=== PATIENT | male | born 1970 | race Two or more races ===

== ENCOUNTER 2024-12-18 15:55 | Inpatient (IN) | payer MEDICAID ==
[~2024-12-18] VITALS: Ht 167.6 cm; Wt 54.2 kg
[2024-12-18] MEDS: ONDANSETRON HCL 4 MG/2 ML VIAL IV ONE (16:15)
[2024-12-18] MEDS: MORPHINE SULFATE 4 MG/ML SYR/VIAL IV ONE (16:15)
--- NOTE | 2024-12-18 16:17 | ED.PDOC ---
History of Present Illness HPI Comments 54-year-old male brought in by EMS presents with a chief complaint of flank pain and nausea. Patient states that x 10 days ago he stopped taking his Keflex abruptly. Patient takes this medication due to a chronic Baxter catheter. Patient mentions that he took it today and took a nap, when he woke up he reports that he got a sharp 10/10 pain to his right flank. Time Seen by MD: 16:02 Reviewed Notes: Medications, Allergies Allergies: Coded Allergies: Sulfamethoxazole w/Trimethoprim (Verified Allergy, Unknown, 12/18/24) Information Source: Patient, Emergency Med Personnel Mode of Arrival: EMS Severity: Moderate Timing: Hours Duration: Since onset Prehospital treatment: Honing Machine Operator Semiautomatic Constitutional: denies: chills, diaphoresis, fatigue, fever, malaise, sweats, weakness, others EENTM: denies: blurred vision, double vision, ear bleeding, ear discharge, ear drainage, ear pain, ear ringing, eye pain, eye redness, hearing loss, mouth pain, mouth swelling, nasal discharge, nose bleeding, nose congestion, nose pain, photophobia, tearing, throat pain, throat swelling, voice changes, others Respiratory: denies: cough, hemoptysis, orthopnea, SOB at rest, shortness of breath, SOB with excertion, stridor, wheezing, others Cardiovascular: denies: chest pain, dizzy spells, diaphoresis, Dyspnea on exertion, edema, irregular heart beat, left arm pain, lightheadedness, palpitations, PND, syncope, others Gastrointestinal: reports: nausea; denies: abdomen distended, abdominal pain, blood streaked bowels, constipated, diarrhea, dysphagia, difficulty swallowing, hematemesis, melena, poor appetite, poor fluid intake, rectal bleeding, rectal pain, vomiting, others Genitourinary: reports: flank pain; denies: burning, dysuria, frequency, hematuria, incontinence, penile discharge, penile sore, pain, testicle pain, testicle swelling, urgency, others Neurological: denies: dizziness, fainting, headache, left sided numbness, left sided weakness, numbness, paresthesia, pre-existing deficit, right sided numbness, right sided weakness, seizure, speech problems, tingling, tremors, w eakness, others Musculoskeletal: denies: back pain, gout, joint pain, joint swelling, muscle pain, muscle stiffness, neck pain, others Integumetry: denies: bruises, change in color, change in hair/nails, dryness, laceration, lesions, lumps, rash, wounds, others Allergic/Immunocompromised: denies: Difficulty Healing, Frequent Infections, Hives, Itching, others Hematologic/Lymphatic: denies: anemia, blood clots, easy bleeding, easy bruising, swollen glands, others Endocrine: denies: excessive hunger, excessive sweating, excessive thirst, excessive urination, flushing, intolerance to cold, intolerance to heat, unexplained weight gain, unexplained weight loss, others Psychiatric: denies: anxiety, bipolar disorder, depression, hopeless, panic disorder, schizophrenia, sleepless, suicidal, others All Other Systems: Reviewed and Negative Physical Exam General Appearance: No Apparent Distress, Normal HEENT: Normal ENT Inspection, Pharynx Normal, TMs Normal Neck: Full Range of Motion, Non-Tender, Normal, Normal Inspection Respiratory: Chest Non-Tender, Lungs Clear, No Accessory Muscle Use, No Respiratory Distress, Normal Breath Sounds Cardiovascular: No Edema, No JVD, No Murmur, No Gallop, Normal Peripheral Pulses, Regular Rate/Rhythm Breast Exam: Deferred Gastrointestinal: No Organomegaly, Non Tender, No Pulsatile Mass, Normal Bowel Sounds, Soft Genitalia: Deferred Pelvic: Deferred Rectal: Deferred Extremities: No calf tenderness, Normal capillary refill, Normal inspection, Normal range of motion, Non-tender, No pedal edema Musculoskeletal : Apperance: Normal Neurologic: Alert, brake holder II-XII nml as Tested, No Motor Deficits, Normal Affect, Normal Mood, No Sensory Deficits Cerebellar Function: Normal Reflexes: Normal Skin: Dry, Normal Color, Warm Lymphatic: No Adenopathy Was a procedure done? Was a procedure done?: No Differential Dx Considerations may include: Generalized weakness, electrolyte imbalance, dehydration, UTI X-Ray, Labs, Meds, VS Vital Signs Date Time Temp Pulse Resp B/P (MAP) Pulse Ox O2 Delivery O2 Flow Rate FiO2 12/18/24 16:29 89 18 97 Room Air* 0 21 12/18/24 16:29 102.7 89 18 155/91 (112) 97 102.7 12/18/24 16:29 102.7 89 18 155/91 (112) 97 102.7 12/18/24 16:28 102.7 Lab Test 12/18/24 16:30 Range/Units White Blood Count 12.2 H 4.4-10.8 10^3/uL Red Blood Count 4.28 L 4.5-5.90 10^6/uL Hemoglobin 12.4 L 13.5-17.5 g/dL Hematocrit 37.4 L 41.0-53.0 % Mean Corpuscular Volume 87.3 80.0-100.0 fL Mean Corpuscular Hemoglobin 28.9 28.0-32.0 pg Mean Corpuscular Hemoglobin Concent 33.1 32.0-36.0 g/dL Red Cell Distribution Width 14.3 11.8-14.3 % Platelet Count 128 L 140-450 10^3/uL Mean Platelet Volume 9.3 6.9-10.8 fL Neutrophils (%) (Auto) 86.7 H 37.0-80.0 % Lymphocytes (%) (Auto) 7.4 L 10.0-50.0 % Monocytes (%) (Auto) 5.3 0.0-12.0 % Eosinophils (%) (Auto) 0.3 0.0-7.0 % Basophils (%) (Auto) 0.3 0.0-2.0 % Neutrophils # (Auto) 10.6 H 1.6-8.6 10 ^3/uL Lymphocytes # (Auto) 0.9 0.4-5.4 10 ^3/uL Monocytes # (Auto) 0.7 0-1.3 10 ^3/uL Eosinophils # (Auto) 0 0-0.8 10 ^3/uL Basophils # (Auto) 0 0-0.2 10 ^3/uL Nucleated Red Blood Cells 0.0 % Urine Color Light-yellow Yellow Urine Clarity Clear Clear Urine pH 7.0 5.0-9.0 Urine Specific Felicity 1.009 1.001-1.035 Urine Protein 1+ H Negative Urine Ketones Negative Negative Urine Blood Negative Negative /uL Urine Nitrite Negative Negative Urine Bilirubin Negative Negative Urine Urobilinogen Normal Negative mg/dL Urine Leukocyte Esterase 1+ Negative /uL Urine RBC 3 0 - 3 /hpf Urine Microscopic WBC 12 H 0-3 /HPF Urine Squamous Epithelial Cells None seen <5 /hpf Urine Bacteria Few H None Seen /hpf Urine Yeast (Budding) Occasional None Seen /hpf Urine Sperm Present None Seen /hpf Urine Glucose Normal Normal mg/dL Sodium Level 141 136-145 mmol/L Potassium Level 4.9 3.5-5.1 mmol/L Chloride Level 111 H 98-107 mmol/L Carbon Dioxide Level 21 20-31 mmol/L Anion Gap 9 5-15 Blood Urea Nitrogen 41 H 9-23 mg/dL Creatinine 1.83 H 0.700-1.30 mg/dL Glomerular Filtration Rate Calc 43 >90 mL/min BUN/Creatinine Ratio 22.4 H 10.0-20.0 Serum Glucose 108 H 74-106 mg/dL Lactic Acid Level 0.6 0.4-2.0 mmol/L Calcium Level 8.7 8.7-10.4 mg/dL Current Medications Medications (Trade) Dose Ordered Sig/Jarvis Route Start Time Stop Time Status Last Admin Sodium Chloride 500 ml @ 500 mls/hr Q1H ONCE IV 12/18/24 16:15 12/18/24 17:14 DC 12/18/24 16:30 Acetaminophen (Tylenol Tablet) 650 mg ONCE ONCE PO 12/18/24 16:30 12/18/24 16:31 DC 12/18/24 16:28 CAT scan of the abdomen and pelvis shows: IMPRESSION: 1. Prominent left renal pelvis. 1.7 cm isodense lesion of the left kidney, likely cysts. This can be further evaluated with CT or MRI of the abdomen using renal mass protocol. 2. The prostate gland is enlarged. Correlation with PSA values may be helpful if not previously performed. 3. Small esophageal hiatal hernia. 4. Hepatomegaly with fatty infiltration. 5. Fecal retention in the colon consistent with constipation. The patient's CBC shows an elevated white blood cell count of 12.2 but otherwise within normal limits The chemistry panel shows a BUN of 41 a creatinine of 1.83 The urine test is positive for UTI At this time, the patient's lactic acid level is within normal limits We did do blood cultures The patient was given 650 mg p.o. for the fever. At this time the patient will be admitted to the hospitalist Images Reviewed?: Images reviewed and evaluated by me Time of 1ST Reevaluation: 16:32 Reevaluation 1ST: Unchanged Patient Education/Counseling: Diagnosis, Treatment, Prognosis Family Education/Counseling: No Family Present Sepsis Sepsis Reasesment Focused Exam Orders: Laboratory Tests 12/18/24 16:30: Lactic Acid Level 0.6 Departure 1 Departure Time of Disposition: 18:14 Impression: Primary Impression: Flank pain Additional Impressions: UTI (urinary tract infection) Qualified Codes: N30.00 - Acute cystitis without hematuria Leukocytosis Qualified Codes: D72.829 - Elevated white blood cell count, unspecified Disposition: 09 ADMITTED INPATIENT Admit to: Med Surg Condition: Fair Critical Care Note Critical Care Time?: No Stability Stability form required: Yes Unstable for transfer: ED Physician Assesment (Clinical assesment) Heart Score Heart Score: Heart Score Response (Comments) Value History N/A 0 EKG N/A 0 Age N/A 0 Risk Factors N/A 0 Troponin N/A 0 Total 0 I personally scribed for GENTRY KEATING MD ([email or web address]) on 12/18/24 at 16:17. Electronically submitted by Jose Chamberlain ([email or web address]). GENTRY KEATING MD December 18, 2024 16:17
[2024-12-18] MEDS: ACETAMINOPHEN 325 MG TAB PO ONE (16:28)
[2024-12-18 16:29] VITALS: PULSE 89; RESP 18; O2SAT 97
[2024-12-18] MEDS: SODIUM CHLORIDE 0.9% 500 ML IV ONE (16:30)
[2024-12-18 16:37] LABS: Basophils # (auto) 0 10 ^3/uL (0-0.2); Basophils % (auto) 0.3 % (0.0-2.0); Eosinophils # (auto) 0 10 ^3/uL (0-0.8); Eosinophils % (auto) 0.3 % (0.0-7.0); Hematocrit 37.4 % (41.0-53.0); Hemoglobin 12.4 g/dL (13.5-17.5); Lymphocytes # (auto) 0.9 10 ^3/uL (0.4-5.4); Lymphocytes % (auto) 7.4 % (10.0-50.0); Mean Corpuscular Hemoglobin 28.9 pg (28.0-32.0); Mean Corpuscular Hgb Conc. 33.1 g/dL (32.0-36.0); Mean Corpuscular Volume 87.3 fL (80.0-100.0); Monocytes # (auto) 0.7 10 ^3/uL (0-1.3); Monocytes % (auto) 5.3 % (0.0-12.0); Neutrophils # (auto) 10.6 10 ^3/uL (1.6-8.6); Neutrophils % (auto) 86.7 % (37.0-80.0); Platelet Count (auto) 128 10^3/uL (140-450); Red Blood Cells 4.28 10^6/uL (4.5-5.90); Red Cell Distribution Width 14.3 % (11.8-14.3); White Blood Cell 12.2 10^3/uL (4.4-10.8)
[2024-12-18 16:44] LABS: Potassium 4.9 mmol/L (3.5-5.1); Sodium 141 mmol/L (136-145)
[2024-12-18 16:45] LABS: Anion Gap 9 (5-15); Carbon Dioxide 21 mmol/L (20-31)
[2024-12-18 16:47] LABS: Calcium 8.7 mg/dL (8.7-10.4); Chloride 111 mmol/L (98-107)
[2024-12-18 16:50] LABS: BUN/Creatinine Ratio 22.4 (10.0-20.0); Blood Urea Nitrogen 41 mg/dL (9-23); Glucose 108 mg/dL (74-106)
--- NOTE | 2024-12-18 17:10 | DVH ---
EXAM: CT Abdomen and Pelvis Without Intravenous Contrast CLINICAL INDICATION: flank pain (right) TECHNIQUE: Axial computed tomography images of the abdomen and pelvis without intravenous contrast. This CT exam was performed using one or more of the following dose reduction techniques: automated exposure control, adjustment of the mA and/or kV according to patient size, and/or use of iterative r econstruction technique. CONTRAST: RADIATION DOSE: CTDIvol = 5.09 mGy, DLP = 255.64 mGy-cm COMPARISON: None FINDINGS: LUNG BASES: Unremarkable. No mass. No consolidation. MEDIASTINUM: Small esophageal hiatal hernia. ABDOMEN: LIVER: Hepatomegaly with fatty infiltration. GALLBLADDER AND BILE DUCTS: Unremarkable. No calcified stones. No ductal dilation. PANCREAS: Unremarkable. No ductal dilation. SPLEEN: Unremarkable. No splenomegaly. ADRENALS: Unremarkable. No mass. KIDNEYS AND URETERS: Prominent left renal pelvis. 1.7 cm isodense lesion of the left kidney, likely cysts. This can be further evaluated with CT or MRI of the abdomen using renal mass protocol. No ob structing stones. STOMACH AND BOWEL: Fecal retention in the colon consistent with constipation. No obstruction. No mucosal thickening. PELVIS: APPENDIX: No findings to suggest acute appendicitis. BLADDER: Unremarkable. No stones. REPRODUCTIVE: The prostate gland is enlarged measuring 5.2 cm in maximum dimension. ABDOMEN and PELVIS: INTRAPERITONEAL SPACE: Unremarkable. No free air. No significant fluid collection. BONES/JOINTS: No acute fracture. No dislocation. SOFT TISSUES: Unremarkable. VASCULATURE: Unremarkable. No abdominal aortic aneurysm. LYMPH NODES: Unremarkable. No enlarged lymph nodes. OTHER FINDINGS: . . . IMPRESSION: 1. Prominent left renal pelvis. 1.7 cm isodense lesion of the left kidney, likely cysts. This can be further evaluated with CT or MRI of the abdomen using renal mass protocol. 2. The prostate gland is enlarged. Correlation with PSA values may be helpful if not previously per formed. 3. Small esophageal hiatal hernia. 4. Hepatomegaly with fatty infiltration. 5. Fecal retention in the colon consistent with constipation.
[2024-12-18 18:08] LABS: Urine Bacteria FEW /hpf (None Seen); Urine Blood Negative /uL (Negative); Urine Budding Yeast OCCASIONAL /hpf (None Seen); Urine Clarity Clear (Clear); Urine Color Light-Yellow (Yellow); Urine Protein, UAD 1+ (Negative); Urine Specific Gravity 1.009 (1.001-1.035); Urine Sperm PRESENT /hpf (None Seen); Urine Squamous Epithelial Cell None Seen /hpf (<5); Urine Urobilinogen Normal (Negative); Urine WBC 12 /HPF (0-3)
[2024-12-18] MEDS: cefTRIAXone 1GM/50ML D5W 50 ML IV ONE (18:39)
[2024-12-18 19:30] VITALS: PULSE 75; RESP 12; O2SAT 95
[2024-12-18] MEDS ORDERED: MORPHINE SULFATE 4 MG/ML SYR/VIAL IV PRN (21:15)
[2024-12-18] MEDS: SODIUM CHLORIDE 0.9% 1,000 ML IV SCH (21:15)
[2024-12-18] MEDS ORDERED: ONDANSETRON HCL 4 MG/2 ML VIAL IV PRN (21:15)
[2024-12-18] MEDS ORDERED: cefTRIAXone 1GM/50ML D5W 50 ML IV ONE (21:15)
[2024-12-18] MEDS ORDERED: ACETAMINOPHEN 325 MG TAB PO PRN (21:15)
--- NOTE | 2024-12-18 21:35 | DVH ---
CHEST RADIOGRAPH Indication: pna Technique: Single frontal view of the chest was obtained Comparison: None FINDINGS: Lines and Tubes: None Lungs: No focal consolidation. Pleura: No effusion. No pneumothorax. Cardiomediastinal contours: Unremarkable Bones: No acute osseous abnormality. IMPRESSION: 1. No acute cardiopulmonary disease.
[2024-12-18 21:43] LABS: Albumin 4.2 g/dL (3.2-4.8); Bilirubin, Direct 0.2 mg/dL (<0.3); Bilirubin, Total 0.6 mg/dL (0.2-1.0); Magnesium 1.7 mg/dL (1.6-2.6); Total Protein 6.4 g/dL (5.7-8.2)
[2024-12-18 21:56] LABS: Protein, Urine 112.9 mg/dL (1-14)
[2024-12-18] MEDS: SODIUM CHLOR 0.9% PF (SALINE LOCK) 10ML VIAL/SYR IV SCH (21:57)
[2024-12-18 21:59] LABS: Creatinine, Urine 36.14 mg/dL (30.0-125.0); Creatinine, Urine 36.23 mg/dL (30.0-125.0); Urine Protein/Creatinine Ratio 3.12
[2024-12-18 22:00] LABS: Amphetamine Screen, Urine Neg (NEGATIVE); Barbiturate Scree,Urine Neg (NEGATIVE); Benzodiazephine Screen, Urine Neg (NEGATIVE); Cannabinoid Screen, Urine Neg (NEGATIVE); Cocaine Screen, Urine Neg (NEGATIVE); Opiate Scree,Urine Neg (NEGATIVE); Phencyclidine Screen, Urine Neg (NEGATIVE)
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
[2024-12-18] MEDS: SODIUM CHLORIDE 0.9% 1,000 ML IV ONE (22:15)
--- NOTE | 2024-12-18 22:36 | DVH ---
INDICATION: RULE OUT PYELONEPHRITIS TECHNIQUE: Multiple real-time sonographic images of the kidneys and bladder were obtained. COMPARISON: None FINDINGS: The right kidney measures 7.5 cm in length, which is normal in size. Decreased cortical thi ckness with increased echogenicity suggesting chronic renal disease. Mild hydronephrosis. 1.4 x 1.2 x 1.1 cm anechoic lesion in the right renal cortex. The left kidney measures 9.4 cm in length, which is normal in size. Decreased cortical increased echo genicity suggesting chronic renal disease No hydronephrosis. 2.9 x 2.4 x 1.7 cm anechoic lesion left renal cortex consistent with a cyst No large intraluminal masses are seen in the bladder. Baxter catheter noted in the bladder in the blad babak is empty. Prostate visualized as a volume of 47 cc IMPRESSION: 1. Right kidney measures 7.5 cm with mild hydronephrosis and findings suggesting chronic renal diseas e. 2. Left kidney measures 9.4 cm with no hydronephrosis 3. Prostate mildly enlarged with a volume of 47 cc Baxter catheter in the bladder in the bladder is empty.
[2024-12-18 23:13] LABS: Folate (Folic Acid) 22.09 ng/mL (>5.38)
[2024-12-19 06:29] LABS: Basophils # (auto) 0 10 ^3/uL (0-0.2); Basophils % (auto) 0.2 % (0.0-2.0); Eosinophils # (auto) 0.1 10 ^3/uL (0-0.8); Hematocrit 36.3 % (41.0-53.0); Hemoglobin 11.9 g/dL (13.5-17.5); Lymphocytes # (auto) 1.5 10 ^3/uL (0.4-5.4); Lymphocytes % (auto) 12.8 % (10.0-50.0); Mean Corpuscular Hemoglobin 28.9 pg (28.0-32.0); Mean Corpuscular Hgb Conc. 32.9 g/dL (32.0-36.0); Mean Corpuscular Volume 87.8 fL (80.0-100.0); Monocytes # (auto) 0.7 10 ^3/uL (0-1.3); Neutrophils # (auto) 9.1 10 ^3/uL (1.6-8.6); Platelet Count (auto) 127 10^3/uL (140-450); Red Blood Cells 4.14 10^6/uL (4.5-5.90); Red Cell Distribution Width 14.5 % (11.8-14.3); White Blood Cell 11.4 10^3/uL (4.4-10.8)
[2024-12-19 06:41] LABS: Alanine Aminotransferase 15 U/L (7-40); Albumin 3.7 g/dL (3.2-4.8); Alkaline Phosphatase 80 U/L (46-116); Anion Gap 11 (5-15); Aspartate Aminotransferase 21 U/L (13-40); Bilirubin, Total 0.6 mg/dL (0.2-1.0); Carbon Dioxide 21 mmol/L (20-31); Glucose 89 mg/dL (74-106); Potassium 4.4 mmol/L (3.5-5.1); Sodium 143 mmol/L (136-145); Total Protein 5.9 g/dL (5.7-8.2)
[2024-12-19 06:49] LABS: Blood Urea Nitrogen 37 mg/dL (9-23); Calcium 7.8 mg/dL (8.7-10.4); Chloride 111 mmol/L (98-107)
[2024-12-19 08:21] VITALS: PULSE 77; RESP 10; O2SAT 96
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
[2024-12-19] MEDS: ENOXAPARIN SOD 40 MG/0.4 ML SYRINGE SC SCH (10:29)
[2024-12-19] MEDS: cefTRIAXone 2GM/50ML D5W 50 ML IV SCH (10:29)
[2024-12-19 15:38] VITALS: BP 121/86; PULSE 55; RESP 15; O2SAT 98
[2024-12-19 20:00] VITALS: PULSE 62
[2024-12-19 21:00] VITALS: BP 124/78; PULSE 56; RESP 17; TEMP 98.1; O2SAT 98
[2024-12-20] VITALS (7 sets, daily range): BP systolic 130–143; BP diastolic 83–93; PULSE 60–66; RESP 14–19; TEMP 97.7–98.8; O2SAT 97–98
[2024-12-20 07:40] LABS: Basophils # (auto) 0 10 ^3/uL (0-0.2); Basophils % (auto) 0.2 % (0.0-2.0); Eosinophils # (auto) 0.2 10 ^3/uL (0-0.8); Eosinophils % (auto) 2.9 % (0.0-7.0); Hematocrit 36.2 % (41.0-53.0); Hemoglobin 12.2 g/dL (13.5-17.5); Lymphocytes # (auto) 0.7 10 ^3/uL (0.4-5.4); Lymphocytes % (auto) 14.3 % (10.0-50.0); Mean Corpuscular Hemoglobin 29.3 pg (28.0-32.0); Mean Corpuscular Hgb Conc. 33.7 g/dL (32.0-36.0); Mean Corpuscular Volume 87.1 fL (80.0-100.0); Monocytes # (auto) 0.4 10 ^3/uL (0-1.3); Monocytes % (auto) 8.1 % (0.0-12.0); Neutrophils # (auto) 3.9 10 ^3/uL (1.6-8.6); Neutrophils % (auto) 74.5 % (37.0-80.0); Nucleated Red Blood Cells % 0.1 %; Platelet Count (auto) 120 10^3/uL (140-450); Red Blood Cells 4.15 10^6/uL (4.5-5.90); Red Cell Distribution Width 14.3 % (11.8-14.3); White Blood Cell 5.2 10^3/uL (4.4-10.8)
[2024-12-20 07:50] LABS: Potassium 4.5 mmol/L (3.5-5.1); Sodium 145 mmol/L (136-145)
[2024-12-20 07:51] LABS: Anion Gap 8 (5-15); Carbon Dioxide 20 mmol/L (20-31)
[2024-12-20 07:56] LABS: BUN/Creatinine Ratio 15.5 (10.0-20.0); Glucose 89 mg/dL (74-106)
[2024-12-20 07:57] LABS: Blood Urea Nitrogen 25 mg/dL (9-23); Calcium 8.3 mg/dL (8.7-10.4); Chloride 117 mmol/L (98-107)
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
[2024-12-20] MEDS: LACTATED RINGER'S 1,000 ML IV SCH (13:38)
[2024-12-21 01:00] VITALS: BP 148/100; PULSE 65; RESP 18; TEMP 97.9; O2SAT 97
[2024-12-21 05:00] VITALS: BP 149/96; PULSE 60; RESP 19; TEMP 98.1; O2SAT 98
[2024-12-21 07:04] LABS: Basophils # (auto) 0 10 ^3/uL (0-0.2); Basophils % (auto) 0.4 % (0.0-2.0); Eosinophils # (auto) 0.2 10 ^3/uL (0-0.8); Eosinophils % (auto) 4.2 % (0.0-7.0); Hematocrit 36.2 % (41.0-53.0); Lymphocytes # (auto) 1.2 10 ^3/uL (0.4-5.4); Lymphocytes % (auto) 22.2 % (10.0-50.0); Mean Corpuscular Hemoglobin 29.6 pg (28.0-32.0); Mean Corpuscular Hgb Conc. 33.2 g/dL (32.0-36.0); Mean Corpuscular Volume 89.2 fL (80.0-100.0); Monocytes # (auto) 0.6 10 ^3/uL (0-1.3); Monocytes % (auto) 10.2 % (0.0-12.0); Neutrophils # (auto) 3.4 10 ^3/uL (1.6-8.6); Platelet Count (auto) 124 10^3/uL (140-450); Red Blood Cells 4.06 10^6/uL (4.5-5.90); Red Cell Distribution Width 14.3 % (11.8-14.3); White Blood Cell 5.4 10^3/uL (4.4-10.8)
[2024-12-21 07:17] LABS: Anion Gap 8 (5-15); Carbon Dioxide 21 mmol/L (20-31); Potassium 4.4 mmol/L (3.5-5.1); Sodium 145 mmol/L (136-145)
[2024-12-21 07:23] LABS: Blood Urea Nitrogen 23 mg/dL (9-23); Glucose 95 mg/dL (74-106)
[2024-12-21 07:25] LABS: Calcium 8.6 mg/dL (8.7-10.4); Chloride 116 mmol/L (98-107)
[2024-12-21 09:00] VITALS: BP 146/92; PULSE 58; RESP 16; TEMP 98.3; O2SAT 97
--- NOTE | 2024-12-21 10:46 | DVHPN2 ---
Progress Note Date Seen: December 21, 2024 Has the PT tested + for MRSA If YES, has PT been informed?: No Medical Necessity Reason Pt with a Central, PICC or Fol: Yes The following are medically ne: Enrique Catheter Subjective Patient reports: Feels better Review of Systems: Deferred Objective vital signs Vital Sign Date Time Temp Pulse Resp B/P (MAP) Pulse Ox O2 Delivery O2 Flow Rate FiO2 12/21/24 09:00 98.3 58 16 146/92 (110) 97 98.3 12/21/24 08:10 Room Air* 0 21 Total Intake and Output 12/20/24 12/20/24 12/21/24 15:00 23:00 07:00 Intake Total 350 ml 630 ml 280 ml Output Total 1050 ml 1550 ml Balance 350 ml -420 ml -1270 ml medications Current Medications Medications Dose Ordered Sig/Jarvis Route Start Time Stop Time Status Last Admin Dose Admin Sodium Chloride 10 ml Q8HR IV 12/18/24 22:00 12/21/24 05:41 10 ML Ondansetron HCl 4 mg Q4HP PRN IV 12/18/24 21:15 Enoxaparin Sodium 40 mg DAILY SC 12/19/24 10:00 12/19/24 10:29 40 MG Acetaminophen 650 mg Q6HP PRN PO 12/18/24 21:15 Morphine Sulfate 2 mg Q4HPRN PRN IV 12/18/24 21:15 Ceftriaxone Sodium/Dextrose 50 ml @ 50 mls/hr DAILY IV 12/19/24 10:00 12/21/24 09:30 50 MLS/HR Lactated Ringer's 1,000 ml @ 75 mls/hr [id number] IV 12/20/24 12:00 12/21/24 02:50 75 MLS/HR Examination: GENERAL:Normal, MSK:Abnormal, :Abnormal laboratory and microbiology Laboratory Tests 12/21/24 06:46 Test 12/21/24 06:46 Range/Units Serum Glucose 95 74-106 mg/dL Microbiology Date/Time Source Procedure Growth Status 12/19/24 10:25 Nose MRSA Screen - Final Complete 12/18/24 16:30 Voided Urine Urine Culture - Preliminary Resulted 12/18/24 16:30 Blood Blood Culture - Preliminary NO GROWTH AFTER 48 HOURS OF INCUBATION. Resulted Problem List/Assessment/Plan Problem List/Assessment/Plan Acute kidney injury hemodynamically mediated versus obstruction Baseline renal function is unknown Chronic urinary retention with Enrique catheter Quadriplegia Hydronephrosis po as tolerated Urology currently has enrique catheter continue per Urology reca avoid hypotension hypodense mass seen on CT will require contrast or MRI rec waiting until renal function improves can be done outpatient Plan discussed with: Patient My Orders My Orders Orders - VESNA BHAGAT MD Procedure Category Date Status Time Urine LAB 12/20/24 Logged Protein/Creatinine Lactated Ringer's PHA 12/20/24 In Process 12:00 Dietary Evaluation Review Comments: 1. Regular diet 2. monitor PO intake, weight trend, lab values, and I/O Expected Outcomes/Goals: To gain or maintain weight FU 3-5 days Muscle mass (Non-Severe): Mild Depletion (Moderate) Fluid Accumulation (N/A): N/A Protein Calorie Malnutrition: N/A Is there a minimum of two crit: VESNA Barry MD December 21, 2024 10:46
[2024-12-21] MEDS ORDERED: FAMO20TA10 PO (12:18)
[2024-12-21] MEDS ORDERED: CEPH250C PO (12:18)
[2024-12-21 12:36] VITALS: BP 131/90; PULSE 57; RESP 16; TEMP 98.1; O2SAT 97
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
[2024-12-21 13:58] VITALS: BP 131/90; PULSE 57; RESP 16; TEMP 98.1; O2SAT 97
[2024-12-21 17:00] VITALS: BP 150/94; PULSE 55; RESP 16; TEMP 98.3; O2SAT 97
== END 2024-12-21 18:34 | disposition home or self-care (01) | DRG 720 ==
LOC: ER 15:55 → EDBD 15:55 → OVERFLOW 21:19 → TELE-WESTW 12-19 15:10 → WEST WING 12-20 12:01
PROVIDERS: ADMIT Internal Medicine; ATTEND Emergency Medicine
DX: A41.9 Sepsis, unspecified organism (principal); N17.0 Acute kidney failure with tubular necrosis; G82.50 Quadriplegia, unspecified; E43 Unspecified severe protein-calorie malnutrition; D69.6 Thrombocytopenia, unspecified; K76.0 Fatty (change of) liver, not elsewhere classified; N18.9 Chronic kidney disease, unspecified; K59.00 Constipation, unspecified; N13.6 Pyonephrosis; N40.0 Benign prostatic hyperplasia without lower urinary tract symptoms; N28.1 Cyst of kidney, acquired; K44.9 Diaphragmatic hernia without obstruction or gangrene; E78.5 Hyperlipidemia, unspecified; Z68.22 Body mass index [BMI] 22.0-22.9, adult; Z87.442 Personal history of urinary calculi; Z83.3 Family history of diabetes mellitus; Z82.49 Family history of ischemic heart disease and other diseases of the circulatory system; Z88.2 Allergy status to sulfonamides; Z88.3 Allergy status to other anti-infective agents
CPT/HCPCS: 36415; 71045; 74176; 76775; 80048; 80053; 80076; 80307; 81001; 82306; 82570; 82607; 82746; 83036; 83605; 83690; 83735; 84156; 84300; 84443; 85025; 87040; 87081; 87086; 87088; 87186; 96361; 96365; G0378